=== PATIENT | female | born 1955 | race Caucasian/White ===

== ENCOUNTER 2016-10-17 11:12 | Day surgery (SDC) | payer OTHER ==
[~2016-10-17] VITALS: Ht 167.6 cm; Wt 83.0 kg
[~2016-10-17 11:12] MED LIST: AMBIEN10 M1 PO; AMBIEN10 MG PO; AMOXICILLIN875 MG PO; Aspirin PO; CELEXA20 MG PO; CLEOCIN300 MG PO; IMITREX100 MG PO; KEFLEX500 MG PO; LEXAPRO20 MG PO; LYRICA100 MG PO; LYRICA75 MG PO; MORPHINE SULFAT15 M1 PO; MOTRIN400 MG PO; OMEPRAZOLE40 M1 PO; OXYCODONE20 MG PO; PERCOCET 10/1 TABLET PO; PERCOCET 5/31 TABLET PO; RELPAX20 MG PO; SIMVASTATIN20 MG PO; SUBOXONE 8 M1 TABLET SL; SYNTHROID50 MCG PO; TIZANIDINE HCL4 MG PO; TOPAMAX100 MG PO; TOPIRAMATE100 MG PO; TYLENOL REGULA325 MG PO; VALIUM5 MG PO; VOLTAREN50 MG PO; XANAX0.5 MG PO; ZANAFLEX4 MG PO; ZOFRAN4 MG PO; Zocor PO
[2016-10-17 12:22] VITALS: BP 106/55
[2016-10-17 13:41] LABS: METH RESISTANT S AUREUS PCR NEGATIVE (NEGATIVE)
[2016-10-17 13:42] LABS: PROBE CHECK PASS; SPECIMEN PROCESSING CONTROL PASS
[2016-10-17 17:55] VITALS: BP 102/58
[2016-10-17 18:27] VITALS: BP 115/60
== END 2016-10-17 18:45 | disposition home or self-care (01) ==
LOC: SDC 11:12 → EDSTATUS 11:17 → 2SOUTH 11:17 → SDC 11:19
PROVIDERS: Neurological Surgery
DX: G89.4 Chronic pain syndrome (principal); M47.26 Other spondylosis with radiculopathy, lumbar region; M46.1 Sacroiliitis, not elsewhere classified; R20.2 Paresthesia of skin; M54.2 Cervicalgia; F17.210 Nicotine dependence, cigarettes, uncomplicated; G47.30 Sleep apnea, unspecified; E66.9 Obesity, unspecified; Z68.29 Body mass index [BMI] 29.0-29.9, adult
CPT/HCPCS: 87641; 93005; C1767; C1778; J0131; J0690; J1100; J1170; J1885; J2250; J2405; J3010; J3370